=== PATIENT | male | born 1955 | race African-American/Black ===

== ENCOUNTER 2017-07-17 13:25 | Emergency (ER) | payer BC ==
[2017-07-17] MEDS ORDERED: Gentamicin Ophth Soln 0.3% 5 ml Bottle ONE (14:19)
== END 2017-07-17 14:43 | disposition home or self-care (01) ==
LOC: ERS 13:25
DX: B34.9 Viral infection, unspecified (principal); E10.9 Type 1 diabetes mellitus without complications; I10 Essential (primary) hypertension; E78.00 Pure hypercholesterolemia, unspecified; Z79.899 Other long term (current) drug therapy
CPT/HCPCS: 99282